=== PATIENT | male | born 1950 | race Caucasian/White ===

== ENCOUNTER 2016-12-23 02:09 | Emergency (ER) | payer OTHER, MEDICARE ==
--- NOTE | 2016-12-23 02:39 | EDPHY ---
H & P Stated Complaint: sore throat, earache bilaterally, congestion xfew days HPI/ROS: HPI CHIEF COMPLAINT: Sore throat, ear congestion ear fullness HISTORY OF PRESENT ILLNESS: Patient very pleasant 66-year-old male, history of a concussion, insomnia, he presents emergency room with sore throat times 12 hours. Ear fullness. No runny nose. No cough. Denies chest pain or shortness of breath. Denies fever. Could not sleep this evening due to throat pain. This started earlier this evening. Denies any other complaints. Past Medical History: Concussion, insomnia Past Surgical History: Right shoulder surgery, right ulnar nerve surgery, inguinal hernia repair Social History: Denies daily use drugs alcohol tobacco products. Family History: Noncontributory ROS REVIEW OF SYSTEMS: A comprehensive 10 point review of systems is otherwise negative aside from elements mentioned in the history of present illness. Exam Constitutional appears well nontoxic, triage nursing summary reviewed, vital signs reviewed, awake/alert. Eyes normal conjunctivae and sclera, EOMI, PERRLA. HENT posterior pharynx is erythematous no significant exudate, uvula midline, no significant swelling, no signs of Ty's, TMs bilaterally are clear. No signs of infection., moist mucus membranes, no epistaxis, neck supple/ no meningismus, no raccoon eyes. Respiratory clear to auscultation bilaterally, normal breath sounds, no respiratory distress, no wheezing. Cardiovascular rate normal, regular rhythm, no murmur, no edema, distal pulses normal. Gastrointestinal soft, non-tender, no rebound, no guarding, normal bowel sounds, no distension, no pulsatile mass. Genitourinary no CVA tenderness. Musculoskeletal no midline vertebral tenderness, full range of motion, no calf swelling, no tenderness of extremities, no meningismus, good pulses, neurovascularly intact. Skin pink, warm, & dry, no rash, skin atraumatic. Neurologic awake, alert and oriented x 3, AAOx3, moves all 4 extremities equally, motor intact, sensory intact, CN II-XII intact, normal cerebellar, normal vision, normal speech. Psychiatric normal mood/affect. Heme/Lymph/Immune no lymphadenopathy. Differential Diagnosis: Includes but is not limited to in a particular order, viral syndrome, upper respiratory tract infection, strep pharyngitis, viral pharyngitis Medical Decision Making: Plan for this patient he appears well nontoxic in no acute distress here in emergency room. Posterior pharynx is erythematous. No exudate. Will send a rapid strep. Re-evaluation: 0348AM: Patient remained stable. No acute distress. Strep test rapid is negative. However significant pain on exam with erythema will start with azithromycin. Treatment for strep pharyngitis with azithromycin. 1st dose given in emergency room. Prescription for rest. Return precautions. Understands return emergency room if develops worsening symptoms questions or concerns. Source: Patient - Personal History Current Tetanus/Diphtheria Vaccine: Unsure Current Tetanus Diphtheria and Acellular Pertussis (TDAP): Unsure - Medical/Surgical History Hx Asthma: No Hx Chronic Respiratory Disease: No Hx Diabetes: No Hx Cardiac Disease: No Hx Renal Disease: No Hx Cirrhosis: No Hx Alcoholism: No Hx HIV/AIDS: No Hx Splenectomy or Spleen Trauma: No Other PMH: shoulder sx, hernia repair, - Social History Smoking Status: Never smoked Constitutional: Initial Vital Signs Temperature (C) 36.6 C 12/23/16 02:23 Heart Rate 82 12/23/16 02:23 Respiratory Rate 20 12/23/16 02:23 Blood Pressure 145/85 H 12/23/16 02:23 O2 Sat (%) 96 12/23/16 02:23 O2 Delivery Mode Room Air Allergies/Adverse Reactions: No Known Allergies Allergy (Unverified 01/19/16 18:10) Home Medications: Medication Instructions Recorded Hydrocodone/APAP 5/325 [[place] 1 - 2 each PO Q4-6PRN PRN #20 tab 01/19/16 5/325] AZITHROMYCIN [Z-PACK] 250 mg PO DAILY #6 tab 12/23/16 Alfuzosin HCl 12/23/16 Finasteride 12/23/16 TESTOSTERONE 12/23/16 Medical Decision Making - Data Points Laboratory Results: 12/23/16 12/23/16 Unknown 02:50 Group A Strep Screen NEGATIVE (NEGATIVE) Group A Strep DNA Pending Departure - Departure Disposition: Home, Routine, Self-Care Clinical Impression: Pharyngitis Qualifiers: Pharyngitis/tonsillitis etiology: unspecified etiology Qualified Code(s): J02.9 - Acute pharyngitis, unspecified Instructions: Pharyngitis (ED) Additional Instructions: 1.Make sure to drink lots of fluids. 2. Stay well-hydrated. 3. Alternate Tylenol Motrin for throat pain. 4. Antibiotic as prescribed. 5. Return emergency room if there is worsening symptoms questions or concerns. Referrals: NONE *PRIMARY CARE P,. [Primary Care Provider] - As per Instructions [facility],. [Clinic] - As per Instructions Prescriptions: AZITHROMYCIN [Z-PACK] 250 mg PO DAILY #6 tab
[2016-12-23] MEDS ORDERED: AZITHROMYCIN 250 MG TAB PO ONE (03:48)
[2016-12-23 04:33] VITALS: BP 137/82; PULSE 70; RESP 16; TEMP 98.1; O2SAT 97
== END 2016-12-23 04:01 | disposition home or self-care (01) ==
DX: J02.9 Acute pharyngitis, unspecified (principal)

== ENCOUNTER → 2017-03-22 | Outpatient (CLI) | payer OTHER, MEDICARE | LOC: BMCIMAGING 11:22 | PROVIDERS: ATTEND Orthopaedic Surgery Hand Surgery | DX: M79.645 Pain in left finger(s) (principal) ==

== ENCOUNTER 2017-07-03 07:59 | Day surgery (SDC) | payer OTHER, MEDICARE ==
--- NOTE | 2017-07-02 06:39 | GHP ---
[f rep st] PREOP HISTORY AND PHYSICAL DATE OF ADMISSION: 07/03/2017 ADMISSION DIAGNOSIS: Full-thickness rotator cuff tear, right shoulder. PLANNED PROCEDURE: Rotator cuff repair. HPI: This is a 66-year-old male, who has undergone a right rotator cuff and labral repair in the [facility] t who crashed on his long board about a year and a half ago and sustained a closed head injury as wel l as recurrent tear of the rotator cuff and trying to manage this nonoperatively. However, he is hav ing worsening pain and weakness and decision was made to proceed with a rotator cuff repair. PRIOR MEDICAL HISTORY: Anxiety, depression. PAST SURGICAL HISTORY: He has had elbow surgery, neurosurgery, and a rotator cuff repair. MEDICATIONS: Anastrozole 1 mg, diazepam 5 mg, finasteride 5 mg, lamotrigine 25 mg, quetiapine 25 mg. ALLERGIES: No known drug allergies. 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 Does not smoke. Reports occasional alcohol use . REVIEW OF SYSTEMS: No shortness of breath. No chest pain. Otherwise, review of systems is unremark able. PHYSICAL EXAM: GENERAL: Healthy-appearing 66-year-old male. He is 5 feet 7 inches tall, weighs 135 pounds. VITAL SIGNS: Blood pressure is 138/78, heart rate 72, respiratory rate 16 on room air. Al ert and oriented x3. HEENT: Normocephalic, atraumatic. Extraocular muscles are intact. NECK: Sup ple. There is no lymphadenopathy. No JVD. CHEST: Clear to auscultation. CARDIOVASCULAR: Regular rate and rhythm. ABDOMEN: Soft, nontender, nondistended. EXTREMITIES: Flexed on the right should er, there is no atrophy in the supraspinatus or supraspinatus fossa. He has active range of motion f rom full extension to 150 degrees of forward flexion, external rotation to 60 degrees. Internal rota tion, he can get his thumb to L1. Supraspinatus and infraspinatus strength are both 3/5. Subscapula ris 4+ out of 5. IMAGING: MRI is reviewed. Full-thickness rotator cuff tear. There is no muscular atrophy. Glenohu meral joints in good shape. Long head of biceps is intact. ASSESSMENT: Recurrent full-thickness rotator cuff tear. PLAN: The patient has not been very functional with his shoulder despite ongoing therapy and injecti ons. I recommend proceeding with a rotator cuff repair. Postoperative rehab was described to him. Risks and benefits including recurrent tear, infection, blood clots. He understands these risks, wis hed to proceed. Preoperative paperwork was completed. [id number]L
[2017-07-03] MEDS ORDERED: ceFAZolin 2 GM/SWFI 2 GM/20 ML SYR IVP ONE (08:17)
[2017-07-03] MEDS ORDERED: LIDOCAINE 1% 2 ML INJ ID PRN (08:18)
[2017-07-03] MEDS ORDERED: LR 1,000 ML IV ONE (08:18)
[2017-07-03] MEDS ORDERED: EPINEPHrine 30 MG/30 ML MDV (0.1 MG/0.1 ML) ONE (08:21)
[2017-07-03] MEDS ORDERED: LIDO/EPI 1% **for epidural** 30 ML SDV ONE (08:21)
[2017-07-03] MEDS ORDERED: BUPIVACAINE/EPI 0.5% 30 ML SDV ONE (08:21)
--- NOTE | 2017-07-03 09:45 | PDHPUP ---
History & Physical Update H&P update statement: This history and physical update is based on an assessment of the patient which was completed after admission or registration (within 24 hours), but prior to the surgery/procedure. H&P update: H&P reviewed & patient examined, no change in patient's condition since H&P completed
[2017-07-03] MEDS ORDERED: fentaNYL 100 MCG/2 ML INJ ONE ×2 (09:54)
[2017-07-03] MEDS ORDERED: PROPOFOL 200 MG/20 ML VIAL ONE (09:54)
[2017-07-03] MEDS ORDERED: LIDOCAINE 2% 5 ML SDV ONE (09:56)
[2017-07-03] MEDS ORDERED: ONDANSETRON 4 MG/2 ML VIAL ONE (09:58)
[2017-07-03] MEDS ORDERED: MIDAZOLAM 2 MG/2 ML VIAL ONE (09:58)
[2017-07-03] MEDS ORDERED: KETOROLAC 30 MG/1 ML SDV ONE (09:58)
[2017-07-03] MEDS ORDERED: DEXAMETHASONE 4 MG/ML VIAL ONE (09:58)
[2017-07-03] MEDS ORDERED: MIDAZOLAM 2 MG/2 ML VIAL IVP ONE (10:00)
--- NOTE | 2017-07-03 10:02 | PDANEPAE ---
ANE History of Present Illness right shoulder scope, cuff repair ANE Past Medical History - Cardiovascular History Hx Hypertension: No Hx Arrhythmias: No Hx Chest Pain: No Hx Coronary Artery / Peripheral Vascular Disease: No Hx CHF / Valvular Disease: No Hx Palpitations: No - Pulmonary History Hx COPD: No Hx Asthma/Reactive Airway Disease: No Hx Recent Upper Respiratory Infection: No Hx Oxygen in Use at Home: No Hx Sleep Apnea: No Sleep Apnea Screening Result - Last Documented: Negative - Neurologic History Hx Cerebrovascular Accident: No Hx Seizures: No Hx Dementia: No Neurologic History Comment: severe concussion s/p skate board accident;. 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 bilat inguinal hernias. R ulnar sx ANE Review of Systems Review of systems is: negative Review of Systems: - Exercise capacity METS (RN): 5 METS ANE Patient History - Allergies Allergies/Adverse Reactions: No Known Allergies Allergy (Verified 06/19/17 10:56) - Home Medications Home medications: home medication list seen and reviewed Home Medications: Alfuzosin HCl 12/23/16 [Last Taken 07/03/17 06:30] Finasteride 12/23/16 [Last Taken 07/01/17] TESTOSTERONE 12/23/16 [Last Taken 07/01/17] Lamictal 25 mg 07/03/17 [Last Taken 07/03/17 06:30] Seroquel 07/03/17 [Last Taken 07/02/17 22:00] - NPO status NPO Since - Liquids (Date): 07/02/17 NPO Since - Liquids (Time): 22:30 NPO Since - Solids (Date): 07/02/17 NPO Since - Solids (Time): 21:00 - Anes Hx Anes Hx: no prior problems - Smoking Hx Smoking Status: Never smoked ANE Labs/Vital Signs - Vital Signs Blood Pressure: 139/91 Heart Rate: 74 Respiratory Rate: 16 O2 Sat (%): 95 Height: 171.45 cm Weight: 62.596 kg ANE Physical Exam - Airway Neck exam: FROM Mallampati Score: Class 1 Mouth exam: normal dental/mouth exam - Pulmonary Pulmonary: no respiratory distress - Cardiovascular Cardiovascular: regular rate and rhythym - ASA Status ASA Status: II ANE Anesthesia Plan Anesthesia Plan: GA w LMA
[2017-07-03] MEDS ORDERED: CALCIUM CHLORIDE 1 GM/10 ML INJ ONE (10:24)
[2017-07-03] MEDS ORDERED: THROMBIN (BOVINE) 5,000 UNIT VIAL TP ONE (10:24)
[2017-07-03] MEDS ORDERED: PHENYLEPHRINE HCL 100 MCG/ML SYR ONE (10:29)
--- NOTE | 2017-07-03 10:56 | POSTANESTH ---
Post Anesthetic Evaluation Cardiovascular Status: Normal, Stable Respiratory Status: Normal, Stable Level of Consciousness/Mental Status: Can Participate in Eval Pain Control: Adequate, Prn Tx Ordered Nausea/Vomiting Control: Adequate, Prn Tx Ordered Complications Possibly Related to Anesthesia: None Noted
[2017-07-03] MEDS ORDERED: epHEDrine SULFATE 10 MG/ML SYR ONE ×3 (11:00)
[2017-07-03] MEDS ORDERED: HYDROCODONE/APAP 5/325 TAB PO PRN (11:06)
[2017-07-03] MEDS ORDERED: ONDANSETRON 4 MG/2 ML VIAL IVP PRN (11:06)
[2017-07-03] MEDS ORDERED: ACETAMINOPHEN 500 MG TAB PO PRN (11:06)
[2017-07-03] MEDS ORDERED: PROMETHAZINE HCL 25 MG/ML INJ IVP PRN (11:06)
[2017-07-03] MEDS ORDERED: epHEDrine SULFATE 10 MG/ML SYR IVP PRN (11:06)
[2017-07-03] MEDS ORDERED: LR 500 ML IV PRN (11:06)
[2017-07-03] MEDS ORDERED: ALBUTEROL 3 ML DEYVIAL IH PRN (11:06)
[2017-07-03] MEDS ORDERED: HYDROmorphONE/DILAUDID 1 MG/ML INJ IVP PRN (11:06)
[2017-07-03] MEDS ORDERED: PHENYLEPHRINE HCL 100 MCG/ML SYR IVP PRN (11:06)
[2017-07-03] MEDS ORDERED: fentaNYL 100 MCG/2 ML INJ IVP PRN (11:06)
[2017-07-03] MEDS ORDERED: oxyCODONE IR 5 MG TAB PO PRN (11:06)
[2017-07-03] MEDS ORDERED: NALOXONE HCL 0.4 MG/ML INJ IVP PRN (11:06)
[2017-07-03] MEDS ORDERED: SUGAMMADEX SODIUM 200 MG/2 ML VIAL IVP ONE (11:54)
--- NOTE | 2017-07-03 12:13 | POSTOPPROG ---
Post Op Note Date of Operation: 07/03/17 Surgeon: Clovis Simms Apprentice Cook: Elliot Albright Anesthesia: GET(General Endotracheal) Pre-op Diagnosis: RC tear RT Post-op Diagnosis: same Procedure: RCR, labral debridement, biceps tendon debridement Findings: Full thickness RC tear Inf/Abcess present in the surg proc area at time of surgery?: No EBL: Minimal Complications: none
--- NOTE | 2017-07-03 12:32 | GOP ---
[f rep st] OPERATIVE REPORT DATE OF OPERATION: 07/03/2017 SURGEON: Clovis Simms MD LOOM REPAIRER: Crescencio Albright. ANESTHESIA: General. PREOPERATIVE DIAGNOSIS: Right shoulder recurrent rotator cuff tear. POSTOPERATIVE DIAGNOSIS: Right shoulder recurrent rotator cuff tear. PROCEDURE PERFORMED: 1. Arthroscopic rotator cuff repair. 2. Labral debridement. 3. Biceps tendon debridement. FINDINGS: INDICATIONS: The patient is a 66-year-old male who crashed on his long board and sustained a recurre nt rotator cuff tear on the right. We tried to manage this nonoperatively; however, he was continuin g to have pain and weakness. The decision was made to proceed with a rotator cuff repair. DESCRIPTION OF PROCEDURE: After appropriate informed consent was obtained, the patient was taken to the operating room and placed supine on the operating table. Time-out was performed. Patient was id entified, correct site was identified. He received 2 g Ancef preoperatively. Following the inductio n of general endotracheal tube anesthesia, he was positioned in the beach chair position with all bon y prominences well padded. Right upper extremity was prepped and draped usual sterile fashion. I in stilled 30 mL of 1% lidocaine with epinephrine and 30 mL of normal saline through a standard posterio r portal. I made a small kimberlyn incision, introduced the camera there, then obtained a standard anterior portal u nder direct visualization, placed a 4.5 mm working cannula through there. The glenohumeral joint showed some articular cartilage thinning of the superior rim of the glenoid. The previous labral repair was intact. Biceps tendon was completely ruptured just past the anchor. There were some grade II and III changes on the humeral head. There was a full-thickness supraspinat us and a partial infraspinatus tear. I debrided it off the biceps stump as well as the labrum, repos itioned the camera in the subacromial space. Moved the anterior portal into the subacromial space. I then obtained a standard lateral portal under direct visualization. Placed an 8 mm plastic working cannula through there, roughened up the footprint with a combination of bur, shaver, and electrocaut [place]. We then placed a medial row of anchors after we had tapped the bone with good bony purchase. U sing our Scorpion suture passing device, we passed suture in horizontal mattress configuration throug h the cuff, brought the limbs out anteriorly, then crisscrossed them and brought them back out latera lly and placed another lateral row, pulling the rotator cuff securely back to the footprint. Suture ends were cut. The subacromial space had been decompressed previously, and it was in good shape with plenty of room. The distal end of the clavicle showed no further arthritis. It had also been excis ed at a previous surgery. Instruments were withdrawn. Portal incisions were closed with 3-0 nylon. I instilled 10 mL of plate let-rich plasma at the repair site and instilled 25 mL of 0.5% Marcaine with epinephrine into the kash ulder. The patient was awakened from anesthesia, taken to the recovery room in satisfactory condition. A sl ing and abduction pillow were placed in the operating room. Dr. Crescecnio Albright's assistance was required throughout the entire case. IMPLANTS USED: Arthrex 4.5 mm SwiveLock anchors x4. COMPLICATIONS: None. DRAINS: None. /[id number]/MODL
[2017-07-03 12:44] VITALS: BP 116/66
== END 2017-07-03 12:45 | disposition home or self-care (01) ==
LOC: FSGY 07:59
PROVIDERS: ATTEND Orthopaedic Surgery
PROC: 0LQ14ZZ Repair Right Shoulder Tendon, Percutaneous Endoscopic Approach (ICD-10-PCS; principal; 2017-07-03 09:45)
DX: S46.011A Strain of muscle(s) and tendon(s) of the rotator cuff of right shoulder, initial encounter (principal); Y93.51 Activity, roller skating (inline) and skateboarding; N40.0 Benign prostatic hyperplasia without lower urinary tract symptoms; Z85.820 Personal history of malignant melanoma of skin
CPT/HCPCS: C1713; J0171; J0690; J1100; J1885; J2250; J2370; J2405; J2704; J3010

== ENCOUNTER → 2017-10-13 | Outpatient (CLI) | payer OTHER, MEDICARE | LOC: FIMAGING 17:33 | PROVIDERS: ATTEND Psychiatry & Neurology Neurology | DX: G31.9 Degenerative disease of nervous system, unspecified (principal); M48.061 Spinal stenosis, lumbar region without neurogenic claudication; M99.73 Connective tissue and disc stenosis of intervertebral foramina of lumbar region ==

== ENCOUNTER → 2018-06-12 | Outpatient (CLI) | payer OTHER, MEDICARE | LOC: GIMAGING 09:47 | PROVIDERS: ATTEND Family Medicine | DX: M47.896 Other spondylosis, lumbar region (principal); M53.86 Other specified dorsopathies, lumbar region | CPT/HCPCS: 72100-PO; 72200-PO ==

== ENCOUNTER → 2018-07-12 | Outpatient (CLI) | payer OTHER, MEDICARE | LOC: FIMAGING 13:44 | PROVIDERS: ATTEND Physician Assistant | DX: M48.061 Spinal stenosis, lumbar region without neurogenic claudication (principal) ==